=== PATIENT | male | born 1990 | race Caucasian/White ===

== ENCOUNTER 2019-01-31 14:15 | Emergency (ER) | payer SELFPAY ==
[~2019-01-31] VITALS: Ht 177.8 cm; Wt 51.7 kg
[~2019-01-31 14:15] MED LIST: ACET500C5 PO; FAMO-96 PO; HYDR-4011 PO; ONDA4TAB14 PO
[2019-01-31 14:24] VITALS: Ht 177.8 cm; Wt 51.7 kg
[2019-01-31] MEDS ORDERED: FAMOTIDINE 20 MG TAB PO STA (16:48)
[2019-01-31] MEDS ORDERED: ONDANSETRON 4 MG INJ IV STA (16:48)
[2019-01-31] MEDS ORDERED: KETOROLAC 30 MG INJ IV STA (17:22)
[2019-01-31] MEDS ORDERED: SOD CHLORIDE 0.9% 1,000 ML IV ONE (17:30)
[2019-01-31] MEDS ORDERED: HYDROmorphONE 2 MG/ML SYG IV STA (19:03)
[2019-01-31] MEDS ORDERED: IOHEXOL 300MG/ML 150 ML BTL ONE (19:04)
[2019-01-31] MEDS ORDERED: SOD CHLORIDE 0.9% 100 ML ONE (19:04)
[2019-01-31] MEDS ORDERED: LIDOCAINE/MYLANTA 40 ML BTL PO ONE (20:00)
[2019-01-31 21:20] VITALS: BP 107/70; PULSE 52; RESP 17
== END 2019-01-31 21:20 | disposition home or self-care (01) ==
LOC: FTE 14:15
DX: R10.13 Epigastric pain (principal); F17.210 Nicotine dependence, cigarettes, uncomplicated; R11.0 Nausea; Z21 Asymptomatic human immunodeficiency virus [HIV] infection status
CPT/HCPCS: 36415; 74177; 80053; 81003; 83690; 85025; 96374; 96375; 99285; J1885; J2405; J7030; Q9967